=== PATIENT | female | born 1995 | race Caucasian/White ===

== ENCOUNTER → 2024-01-13 | Outpatient (CLI) | payer MEDICAID, SELFPAY ==
--- NOTE | 2024-01-13 14:32 | XR_ITS ---
Examination: Right elbow 3 views Technique: Elbow AP, oblique, lateral 3 views Exam date and time: January 13, 2024 1526 hours INDICATIONS: Right elbow pain and decreased range of motion one month FINDINGS: Mild elbow osteoarthritis No elbow effusion No fracture or dislocation IMPRESSION: Mild elbow osteoarthritis.
== END | disposition home or self-care (01) ==
LOC: CDIM 14:16
PROVIDERS: PCP Internal Medicine; Referring Provider Nurse Practitioner Family; Visit Provider Nurse Practitioner Family
DX: M19.021 Primary osteoarthritis, right elbow (principal)
CPT/HCPCS: 73080

== ENCOUNTER 2024-05-23 18:58 | Emergency (ER) | payer MEDICAID, SELFPAY ==
[2024-05-23 18:59] VITALS: BMI 38.7
--- NOTE | 2024-05-23 19:10 | EKG_ITS ---
[facility] Test Date: 2024-05-23 Pat Name: JOSE NDIAYE Department: Room: - Gender: Female Psychologist: : 1995 Requested By: Jamie Pruitt Order Number: [id number] Reading MD: Jamie Pruitt Measurements Intervals [place] Rate: 81 P: 32 TX: 150 QRS: -13 QRSD: 90 T: 14 QT: 371 QTc: 431 Interpretive Statements SINUS RHYTHM MINIMAL VOLTAGE CRITERIA FOR LVH, CONSIDER NORMAL VARIANT [MEETS CRITERIA IN ONE OF: R(aVL), S(V1), R(V5), R(V5/V6)+S(V1)] No previous ECG available for comparison /store/S0/[id number]/ecg/[id number].pdf
[2024-05-23 20:04] VITALS: BP 135/88; PULSE 70; RESP 20; TEMP 36.6; O2SAT 98
--- NOTE | 2024-05-23 20:21 | XR_ITS ---
Examination: Transvaginal ultrasound of the pelvis, complete Technique: Transvaginal sonographic images pelvis performed using brock scale imaging Exam date and time: May 23, 2024, 2111 hours INDICATIONS: Pelvic pain and vaginal bleeding beginning 18 days ago FINDINGS: Uterus 6.1 cm endometrial stripe 11 mm No uterine mass or intrauterine gestation Right ovary 3.1 cm arterial flow Left ovary 3.0 cm arterial flow Mild fluid in the cul-de-sac IMPRESSION: No uterine mass or intrauterine gestation Negative for ovarian torsion.
--- NOTE | 2024-05-23 20:22 | PD.EDRME ---
Rapid Medical Screening Exam [facility] Arrival date/time: 05/23/24 18:58 28F with no significant PMH presents to ED with 3 weeks of intermittent weakness, N/V, vaginal spotting, and pelvic/back pain. Patient denies dysuria. Patient came in primarily because today she stood up after using the restroom and had a syncopal episode where she fell on to her bed. Patient's menstrual cycles are usually regular. Chief Complaint: Dizziness Vital signs: Vital Signs Temperature 97.9 F 05/23/24 20:04 Pulse Rate 70 05/23/24 20:04 Respiratory Rate 20 05/23/24 20:04 Blood Pressure 135/88 H 05/23/24 20:04 Pulse Oximetry (%) 98 05/23/24 20:04 Oxygen Delivery Method Room Air 05/23/24 20:04
[2024-05-23 20:58] LABS: Basophils % (Auto) 0 % (0-2.5); Eosinophils # (Auto) 0.1 Thou/mm3 (0.0-0.5); Eosinophils % (Auto) 1 % (0-10); Hematocrit 42.6 % (36.0-46.0); Hemoglobin 14.8 g/dL (12.0-16.0); Immature Granulocytes % (Auto) 0 % (0-0); Immature Granulocytes Auto 0.03 Thou/mm3 (0.00-0.00); Lymphocytes % (Auto) 32 % (10-50); Mean Corpuscular HGB Conc 34.7 g/dl (31.0-37.0); Mean Corpuscular Volume 92 fL (80-100); Monocytes # (Auto) 0.8 Thou/mm3 (0.0-0.8); Monocytes % (Auto) 9 % (0-12); Neutrophils # (Auto) 5.4 Thou/mm3 (1.8-7.7); Neutrophils % (Auto) 58 % (37-80); Nucleated Red Blood Cell % 0 /100 WBC (0); Platelet Count 233 Thou/mm3 (140-440); RDW Standard Deviation 41.1 fL (36.4-46.3); Red Blood Count 4.62 Miln/mm3 (4.00-5.20); White Blood Count 9.3 Thou/mm3 (3.6-11.0)
[2024-05-23 21:04] LABS: HCG Qualitative,Urine Negative
[2024-05-23 21:13] LABS: Alanine Aminotransferase 82 U/L (10-49); Albumin, Serum 4.4 gm/dL (3.5-5.0); Albumin/Globulin Ratio 1.4 (1.2-2.2); Alkaline Phosphatase 86 U/L (46-116); Anion Gap 10 (7-16); Aspartate Amino Transferase 73 U/L (0-34); BUN/Creatinine Ratio 20 Ratio (12-20); Bilirubin,Total 0.6 mg/dL (0.3-1.2); Blood Urea Nitrogen 12 mg/dL (9-23); Calcium 9.8 mg/dL (8.3-10.6); Calcium (Corrected) 9.8 mg/dL (8.5-10.1); Carbon Dioxide 26.5 mMol/L (20.0-31.0); Chloride 106 mMol/L (98-107); Creatinine (Component) 0.6 mg/dL (0.6-1.3); Estimated Creatinine Clearance 202.1 mL/min (>60); Globulin 3.2 gm/dL (2.3-3.5); Glucose 97 mg/dL (74-106); Osmolality,Calculated 282 (275-295); Potassium 4.1 mMol/L (3.4-5.1); Sodium 142 mMol/L (136-145); Total Protein 7.6 gm/dL (5.7-8.2); eGFR > 60 See Note
[2024-05-23 21:32] VITALS: BP 145/78; PULSE 65; RESP 20; TEMP 36.8; O2SAT 98
[2024-05-23 21:35] LABS: Amphetamine/Methamp Scrn,U Negative (Negative); Barbiturate Screen,Urine Negative (Negative); Benzodiazepines Screen,Urine Negative (Negative); Benzoylecgonine Screen, Ur Negative (Negative); Fentanyl Screen,Urine Negative (Negative); Opiate Screen,Urine Negative (Negative); THC Screen,Urine Negative (Negative)
--- NOTE | 2024-05-23 21:36 | PC.NURSE ---
PT CAME IN TO ED AROUND 194 PT HAD SYNCOPE EPISODE WITH LOC DID NOT HIT HEAD WAS NOT WITNESSED. PT STATES SHE HAS HAD A MENSES FOR 18 DAYS NO HEAVY FLOW ON AND OF SPOTTING. PT STATES SHE HAS ABD PAIN STARTED 1 WEEK AGO
--- NOTE | 2024-05-23 21:45 | PD.EDADULT ---
ED General RME/HPI General Chief complaint: Dizziness Stated complaint: MENSTRATION 18 DAYS, DIZZY, FELL, NAUSEA, I[place] Time Seen by Provider: 05/23/24 21:38 Arrival date/time: 05/23/24 18:58 CC: Patient has 2 complaints the first 1 is syncope today at approximately 1 in the afternoon while walking from the bathroom to the bed the patient got lightheaded dizzy and passed out. Patient states she has had intermittent dizziness for the past 2 to 3 weeks. She has not informed her PCP Dr. Kuhn. Second is irregular menses and is currently had vaginal bleeding. Patient denies vaginal discharge heavy by bleeding at this time. Currently the patient is mildly nauseated. Has no other complaints. RME / HPI RME / HPI narrative: 05/23/24 18:58 28F with no significant PMH presents to ED with 3 weeks of intermittent weakness, N/V, vaginal spotting, and pelvic/back pain. Patient denies dysuria. Patient came in primarily because today she stood up after using the restroom and had a syncopal episode where she fell on to her bed. Patient's menstrual cycles are usually regular. Related Data Previous Rx's ?Medication ?Instructions ?Recorded dicyclomine 20 mg tablet 20 mg PO Q8HR PRN Abdominal cramps 10/07/18 #10 tabs ondansetron 4 mg disintegrating 4 mg PO Q8H PRN nausea and 10/07/18 tablet vomiting #5 tabs sucralfate 1 gram tablet (Carafate) 1 gm PO Q6H #14 tabs 10/07/18 acetaminophen 325 mg capsule 650 mg (2 x 325 mg) PO Q6H PRN 04/13/19 fever or pain #30 caps cyclobenzaprine 10 mg tablet 10 mg PO TID #30 tabs 04/13/19 etodolac 400 mg tablet 400 mg PO BID PRN pain #30 tabs 08/06/19 Allergies Allergy/AdvReac Type Severity Reaction Status Date / Time codeine Allergy Unknown ANAPHALTIC Verified 05/23/24 19:02 REACTION Review of Systems Review of Systems Narrative Review of Systems: GEN: No fever, no chills, no weight loss EYES: No discharge, no visual changes, no pain HEENT: No ear pain, no congestion, no sore throat PULM: No shortness of breath, no cough, no congestion CV: No chest pain, no dyspnea on exertion, no palpitations GI: + nausea, no vomiting, no diarrhea, no pain, no constipation : No frequency, no urgency, no dysuria MUSC/SKEL: No joint pain, no back pain SKIN: No rash PSYCH: No hallucinations, no depression HEME/LYMPH: No easy bleeding or bruising tendencies NEURO: No weakness, no headache Past Medical History Past Medical History CARDIAC: Negative Cardiac Disorders or Congestive Heart Failure RESPIRATORY: Negative Chronic Obstructive Pulmonary Disease (COPD) or Asthma GASTROINTESTINAL: Positive Gastrointestinal Disorders, Ulcer and Gastroesophageal Reflux Disease GENITOURINARY: Negative Genitourinary Disorders or Renal Disease REPRODUCTIVE: Positive Endometriosis MUSCULOSKELETAL: Positive Fractures ENDOCRINE: Positive Endocrine Disorders and Hypothyroidism; Negative Diabetes Mellitus Type 1 or Diabetes Mellitus Type 2 HEMATOLOGIC: Negative Sickle Cell Disease PSYCHO/SOCIAL: Positive Depression and Self-Mutilation Social History SMOKING STATUS: Current every day smoker SUBSTANCE USE: does not use ED Exam Narrative Physical exam: [General: Obese not in any acute distress Head normocephalic HEENT: Within acceptable limits Neck is supple nontender Chest equal chest rise nontender to palpation Respiratory: Clear to auscultation no wheezes crackles or rubs CV: Rate rhythm is regular no murmurs rubs or clicks Abdomen is distended secondary to body habitus soft nontender no masses positive bowel sounds all 4 quadrants Back: No CVA tenderness no spinous process tenderness from cervical spine thoracic and lumbar spine Skin: Intact no petechiae rash induration ulceration or crepitus Extremities: Moving all extremity against resistance cap refill less than 2 seconds neurosensory intact Neuro: Awake alert oriented x3 Glascow coma 15 no focal deficits] Course Quality Measures none Orders Category Date Time Status EKG (ED ONLY) *Do not use* NOW Care 05/23/24 19:10 Completed EKG (ED Only) Stat Exams 05/23/24 19:10 Draft US transvaginal Stat Exams 05/23/24 20:21 Completed CBC Stat Lab 05/23/24 20:36 Completed CMP [Comprehensive Metabolic Panel] Stat Lab 05/23/24 20:36 Completed Drug Screen,Urine Stat Lab 05/23/24 20:31 Completed HCG Qualitative,Urine Stat Lab 05/23/24 20:31 Completed Ondansetron Odt [Zofran Odt] Med 05/23/24 21:43 Discontinued 4 mg PO X1 ONE Vital Signs Vital signs: Vital Signs Temperature 97.9 F 05/23/24 20:04 Pulse Rate 70 05/23/24 20:04 Respiratory Rate 20 05/23/24 20:04 Blood Pressure 135/88 H 05/23/24 20:04 Pulse Oximetry (%) 98 05/23/24 20:04 Oxygen Delivery Method Room Air 05/23/24 20:04 MDM Patient data External records reviewed:: [facility] previous records Clinical information provided by:: patient Social determinants that could affect healthcare access:: none Patient has the following chronic illnesses:: Obesity How is presenting disease/condition affected by chronic disease/condition?: uneffected by Evaluation data The following diagnostics were reviewed and interpreted by me:: lab results and radiology exam(s) Lab and/or radiology exams considered but not ordered:: CBC shows no acute leukocytosis anemia thrombocytopenia CMP shows no acute electrolyte imbalances renal impairment transaminitis or T. bili elevation. Urine is negative UDS is negative. EKG performed at 2009 shows a ventricular rate of 81 WI interval 150 QRS of 90 QTc of 408 there is normal sinus rhythm. Transvaginal ultrasound is negative for any acute finding Interpretation Summary: Patient has 2 issues with syncope feels may be vasovagal but am not sure. The patient has been running mildly bradycardic this is later today. Patient certainly needs to follow-up with a primary care provider for further evaluation. Dysfunctional uterine bleeding patient is to follow-up with an [employer] if there is worsening of symptoms she is to return the emergency room immediately for further evaluation. Medications Medications considered but not ordered:: None Medication administrations:: Medication Administration History Discontinued Medications Ondansetron HCl (Ondansetron Odt 4 Mg Tabrap) 4 mg PO X1 ONE; Protocol Stop: 05/23/24 21:44 Last Admin: 05/23/24 21:58 Dose: 4 mg Documented By: BD None Consultations Consultation(s) initiated? (list below): No Diagnosis Differential Diagnosis ED Complaint MDM: Syncope vaginal bleeding ovarian cyst Most likely diagnosis given after review of the tests above:: Syncope vaginal bleeding Admission Indicated Admission indicated?: not indicated Explain why admission is indicated or not indicated:: Stable for discharge Admission Request Was there a request for admission?: No Disposition Plan Disposition Plan: Discharge Discharge Attestation Discharge Attestation: The patient and all family members were given an opportunity to ask questions and understood the discharge instructions. Discharge instructions specifically effects, indications for sooner follow up or return to the emergency department, and the expected course of current diagnosis. Patient condition: Stable Medical Decision Making Differential Diagnosis Differential Diagnosis: Syncope vaginal bleeding ovarian cyst Lab Data 05/23/24 20:36 05/23/24 20:36 Labs: Lab Results 05/23/24 05/23/24 Range/Units 20:31 20:36 WBC 9.3 (3.6-11.0) Thou/mm3 RBC 4.62 (4.00-5.20) Miln/mm3 Hgb 14.8 (12.0-16.0) g/dL Hct 42.6 (36.0-46.0) % MCV 92 (80-100) fL MCH 32.0 (25.0-35.0) pg MCHC 34.7 (31.0-37.0) g/dl RDW Std Deviation 41.1 (36.4-46.3) fL Plt Count 233 (140-440) Thou/mm3 Neut % (Auto) 58 (37-80) % Lymph % (Auto) 32 (10-50) % Coles % (Auto) 9 (0-12) % Eos % (Auto) 1 (0-10) % Baso % (Auto) 0 (0-2.5) % Neut # (Auto) 5.4 (1.8-7.7) Thou/mm3 Lymph # (Auto) 3.0 (1.0-4.8) Thou/mm3 Coles # (Auto) 0.8 (0.0-0.8) Thou/mm3 Eos # (Auto) 0.1 (0.0-0.5) Thou/mm3 Baso # (Auto) 0.0 (0.0-0.2) Thou/mm3 Immature Gran # (Auto) 0.03 H (0.00-0.00) Thou/mm3 Absolute Nucleated RBC 0.00 (0.00-0.00) Thou/mm3 Immature Gran % 0 (0-0) % Nucleated RBC % 0 (0) /100 WBC Sodium 142 (136-145) mMol/L Potassium 4.1 (3.4-5.1) mMol/L Chloride 106 (98-107) mMol/L Carbon Dioxide 26.5 (20.0-31.0) mMol/L Anion Gap 10 (7-16) BUN 12 (9-23) mg/dL Creatinine 0.6 (0.6-1.3) mg/dL Estim Creat Clear Calc 202.1 (>60) mL/min eGFR > 60 (60 - ) See Note BUN/Creatinine Ratio 20 (12-20) Ratio Glucose 97 (74-106) mg/dL Calculated Osmolality 282 (275-295) Calcium 9.8 (8.3-10.6) mg/dL Corrected Calcium 9.8 (8.5-10.1) mg/dL Total Bilirubin 0.6 (0.3-1.2) mg/dL AST 73 H (0-34) U/L ALT 82 H (10-49) U/L Alkaline Phosphatase 86 (46-116) U/L Total Protein 7.6 (5.7-8.2) gm/dL Albumin 4.4 (3.5-5.0) gm/dL Globulin 3.2 (2.3-3.5) gm/dL Albumin/Globulin Ratio 1.4 (1.2-2.2) Urine HCG, Qual Negative Urine Opiates Screen Negative (Negative) Urine Fentanyl Screen Negative (Negative) Ur Barbiturates Screen Negative (Negative) U Amphetamin/Meth Scrn Negative (Negative) U Benzodiazepines Scrn Negative (Negative) U Cocaine Metab Screen Negative (Negative) U Marijuana (THC) Screen Negative (Negative) Discharge Plan Plan Patient Disposition: HOME (Self Care) Patient condition on transfer: Stable Prescriptions/Referrals Prescriptions/Med Rec: No Action cyclobenzaprine 10 mg tablet 10 mg PO TID Qty: 30 0RF acetaminophen 325 mg capsule 650 mg PO Q6H PRN (Reason: fever or pain) Qty: 30 0RF etodolac 400 mg tablet 400 mg PO BID PRN (Reason: pain) Qty: 30 0RF sucralfate [Carafate] 1 gram tablet 1 gm PO Q6H Qty: 14 0RF dicyclomine 20 mg tablet 20 mg PO Q8HR PRN (Reason: Abdominal cramps) Qty: 10 0RF ondansetron 4 mg tablet,disintegrating 4 mg PO Q8H PRN (Reason: nausea and vomiting) Qty: 5 0RF Referrals: Bailey,Noah S, MD [Primary Care Provider] - In 1 week Jessica (Referring),MD Ugo [Referring Provider] - In 1 week Problem List Clinical Impression: Syncope, Vaginal bleeding Patient/Caregiver Discharge Instructions Education Materials: ED Fainting, Uncertain Cause Additional Instructions: Follow-up with the [employer] [facility] listed above or will be of your choice for vaginal bleeding if it is recurrent. Follow-up with your primary care doctor syncopal. If there is worsening or repeat of the symptoms return the emergency room for reevaluation. Print Language: Serbian Stand Alone Forms: Gogo Award Info., Work/School Release, Patient Portal Info Letter PA/EVELIA Supervising Physician PA/EDITOR BOOK Supervising Physician: aMrk Morrison ENP
[2024-05-23] MEDS: ONDANSETRON ODT 4 MG TABRAP PO (21:58)
[2024-05-23 22:44] VITALS: BP 145/78; PULSE 58; RESP 14; TEMP 36.8; O2SAT 98
== END 2024-05-23 22:47 | disposition home or self-care (01) ==
PROVIDERS: Physician Assistant; Emergency Provider Emergency Medicine; PCP Obstetrics & Gynecology
DX: R55 Syncope and collapse (principal); N93.9 Abnormal uterine and vaginal bleeding, unspecified
CPT/HCPCS: 36415; 76830; 80053; 80307; 81025; 85025; 93005; 99284; Q0162

== ENCOUNTER 2024-09-06 18:14 | Emergency (ER) | payer MEDICAID, SELFPAY ==
[2024-09-06 18:47] VITALS: BP 134/84; PULSE 91; RESP 20; TEMP 37; O2SAT 98; BMI 37.3
--- NOTE | 2024-09-06 18:57 | XR_ITS ---
Examination: Transvaginal ultrasound of the pelvis, complete Technique: Transvaginal sonographic images pelvis performed using brock scale imaging Exam date and time: September 06, 20242002 hours INDICATIONS: Pelvic pain beginning 2 days ago FINDINGS: Uterus 6.2 cm endometrial stripe 1.0 cm No uterine mass or intrauterine gestation Right ovary 2.9 cm arterial flow. Left ovary 2.4 cm arterial flow Small cystic areas in the endometrium IMPRESSION: No uterine mass or intrauterine gestation No adnexal mass.
--- NOTE | 2024-09-06 18:57 | XR_ITS ---
Examination: CT abdomen with intravenous contrast CT pelvis with intravenous contrast 2-D coronal reconstructions 2-D sagittal reconstructions Date and time of exam:Abdominal pain nausea vomiting beginning 3 days ago. CTDI: vol (mGy) 23.5 DLP: (mGycm) 1527 Technique: Multiple axial sections of the abdomen and pelvis have been obtained. 64 slice high-resolution scanner used. 3 mm axial sections have been obtained, post intravenous injection 60 cc Isovue 370 2-D sagittal, coronal reconstructions obtained. Low dose protocols were performed. One or more of the following dose reduction techniques were used; automated exposure control, adjustment of the mA and/or KV according to patient size, use of iterative reconstruction technique. Findings: Fatty infiltration throughout the liver, hepatomegaly 22 cm Contracted gallbladder Fatty infiltration throughout the pancreas Aorta normal size No renal or ureteral calculi, hydronephrosis Aorta normal size Tiny fat-containing umbilical hernia Normal appendix No bowel obstruction No diverticulitis. No pelvic mass Urinary bladder intact Mild disc narrowing L5-S1 IMPRESSION: Fatty infiltration throughout the liver Fatty infiltration throughout the pancreas No renal or ureteral calculi, no hydronephrosis Normal appendix No bowel obstruction diverticulitis or free air
[2024-09-06 19:49] LABS: Collection Type, Urine Clean Catch; WBC,Urine 0 /hpf (0-5)
[2024-09-06 20:00] LABS: Bacteria,Urine Rare; Bilirubin,Urine Negative (Negative); Blood,Urine 3+ (Negative); Clarity,Urine Clear (Clear/Hazy); Color,Urine Yellow (Lt Yel-Yel); Culture Indicated,Urine Not Indicated; Glucose, Urine Negative (Negative); Ketones,Urine Negative (Negative); Leukocyte Esterase,Urine Negative (Negative); Nitrite,Urine Negative (Negative); PH,Urine 6.0 (5.0-7.0); Protein,Urine Negative (Neg - Trace); RBC,Urine 5 /hpf (0-3); Specific Gravity,Urine 1.024 (1.001-1.035); Squamous Epithelial Cell,Urine 4 /hpf (0-5); Urobilinogen,Urine Negative mg/dL (0.0-1.0)
[2024-09-06 20:01] LABS: HCG Qualitative,Urine Negative
[2024-09-06 20:12] LABS: Amphetamine/Methamp Scrn,U Negative (Negative); Barbiturate Screen,Urine Negative (Negative); Benzodiazepines Screen,Urine Negative (Negative); Benzoylecgonine Screen, Ur Negative (Negative); Fentanyl Screen,Urine Negative (Negative); Opiate Screen,Urine Negative (Negative); THC Screen,Urine Negative (Negative)
--- NOTE | 2024-09-06 20:35 | EDNOTE_ITS ---
ED Abdominal Pain RME/HPI General Chief Complaint: Abdominal Pain Stated complaint: FELT POP IN STOMACH ; HURTS TO BREATH / MOVE Time seen by provider: 09/06/24 18:57 Arrival date/time: 09/06/24 18:14 28F with no significant PMH presents to ED with lower ab/pelvic pain and N/V after she bent over and heard a pop. Patient denies dysuria and diarrhea. Limitations: no limitations Related Data Previous Rx's ?Medication ?Instructions ?Recorded dicyclomine 20 mg tablet 20 mg PO Q8HR PRN Abdominal cramps 10/07/18 #10 tabs ondansetron 4 mg disintegrating 4 mg PO Q8H PRN nausea and 10/07/18 tablet vomiting #5 tabs sucralfate 1 gram tablet (Carafate) 1 gm PO Q6H #14 ta bs 10/07/18 acetaminophen 325 mg capsule 650 mg (2 x 325 mg) PO Q6 H PRN 04/13/19 fever or pain #30 caps cyclobenzaprine 10 mg tablet 10 mg PO TID #30 tabs etodolac 400 mg tablet 400 mg PO BID PRN pain #30 t abs 08/06/19 Allergies Allergy/AdvReac Type Severity Reaction Status Date / Time codeine Allergy Unknown ANAPHALTIC Verified 09/06/24 18:20 REACTION Review of Systems Review of Systems Systems Reviewed: All systems reviewed, normal except as documented Constitutional Constitutional: Reports system reviewed and no additional complaints, except as documented, Denies fever(s) and Denies headache(s) ENT Ears, Nose, Mouth, and Throat: Denies disequilibrium and Denies headache(s) Cardiovascular Cardiovascular: Reports system reviewed and no additional complaints, except as documented, Denies chest pain and Denies dyspnea Respiratory Respiratory: Reports system reviewed and no additional complaints, except as documented, Denies cough and Denies dyspnea Gastrointestinal Gastrointestinal: Reports system reviewed and no additional complaints, except as documented, Reports as per HPI, Reports abdominal pain, Reports nausea and Reports vomiting Neurologic Neurologic: Reports system reviewed and no additional complaints, except as documented, Denies confusion, Denies disequilibrium and Denies headache(s) Psychiatric Psychiatric: Denies confusion Past Medical History Past Medical History CARDIAC: Positive Cardiac Disorders (Heart Murmur); Negative Congestive Heart Failure RESPIRATORY: Negative Chronic Obstructive Pulmonary Disease (COPD) or Asthma GASTROINTESTINAL: Positive Gastrointestinal Disorders, Ulcer and Gastroesophageal Reflux Disease GENITOURINARY: Negative Genitourinary Disorders or Renal Disease REPRODUCTIVE: Positive Endometriosis MUSCULOSKELETAL: Positive Fractures ENDOCRINE: Positive Endocrine Disorders and Hypothyroidism; Negative Diabetes Mellitus Type 1 or Diabetes Mellitus Type 2 HEMATOLOGIC: Negative Sickle Cell Disease PSYCHO/SOCIAL: Positive Depression and Self-Mutilation Social History SMOKING STATUS: Current every day smoker SUBSTANCE USE: does not use ED Exam General Limitations: Present no limitations General appearance: Present alert and in no apparent distress Head Head exam: Present atraumatic Eye Eye exam: Present normal appearance, PERRL and EOMI ENT ENT exam: Present normal exam, normal oropharynx and mucous membranes moist Neck Neck exam: Present normal inspection, full ROM and trachea midline Chest Chest inspection: Present normal inspection and symmetric chest wall rise Respiratory Respiratory exam: Present normal lung sounds bilaterally Cardiovascular Cardiovascular exam: Present regular rate, normal rhythm and normal heart sounds Abdominal Exam Abdominal exam: Present soft and normal bowel sounds Abdominal tenderness: Present RLQ, LLQ and mild Extremities Exam Extremities exam: Present normal inspection and full ROM Back Exam Back exam: Present normal inspection and full ROM Neurological Exam Neurological exam: Present alert, oriented X3 and CN II-XII intact Psychiatric Psychiatric exam: Present normal affect and normal mood Skin Skin exam: Present warm, dry, intact and normal color Course Quality Measures none Orders Category Date Time Status CT Screening NOW Care 09/06/24 18:58 Active Insert IV QSHIFT Care 09/06/24 18:[address] abdomen pelvis w con Stat Exams 09/06/24 18:57 Completed US transvaginal Stat Exams 09/06/24 18:57 Completed CBC Stat Lab 09/06/24 21:00 Completed CMP [Comprehensive Metabolic Panel] Stat Lab 09/06/24 21:00 Completed Drug Screen,Urine Stat Lab 09/06/24 19:33 Completed HCG Qualitative,Urine Stat Lab 09/06/24 19:33 Completed Lipase Stat Lab 09/06/24 21:00 Completed Urinalysis, C/S if Indicated Stat Lab 09/06/24 19:33 Completed Ketorolac Inj [Toradol Inj] Med 09/06/24 21:26 Discontinued 30 mg IVP X1 ONE Ondansetron Inj [Zofran Inj] Med 09/06/24 21:26 Discontinued 4 mg IV X1 ONE Vital Signs Vital signs: Vital Signs Temperature 98.6 F 09/06/24 18:47 Pulse Rate 91 09/06/24 18:47 Respiratory Rate 20 09/06/24 18:47 Blood Pressure 134/84 H 09/06/24 18:47 Pulse Oximetry (%) 98 09/06/24 18:47 Oxygen Delivery Method Room Air 09/06/24 18:47 O2 at 98% on RA and WNLs Abdominal Pain MDM MDM Narrative MDM Narrative:: 28F with no significant PMH presents to ED with lower ab/pelvic pain and N/V after she bent over and heard a pop. Patient denies dysuria and diarrhea. Physical exam reveals mild lower ab tenderness. Patient is afebrile, calm, and alert. CT unremarkable. US small cysts in endometrium. No leukocytosis or gross anemia. CMP unremarkable. Drug/HCG screen neg. Likely MSK-related pain. Meds and mitochondrial disorders counselor given. Patient data External records reviewed:: [facility] previous records Clinical information provided by:: patient Social determinants that could affect healthcare access:: none Patient has the following chronic illnesses:: none How is presenting disease/condition affected by chronic disease/condition?: no chronic disease Evaluation data The following diagnostics were reviewed and interpreted by me:: lab results and radiology exam(s) Lab and/or radiology exams considered but not ordered:: ordered Interpretation Summary: above Medications / Prescriptions Medications or Prescriptions considered but not ordered:: ordered Medication administrations:: Medication Administration History Discontinued Medications Ketorolac Tromethamine (Ketorolac Inj 30 Mg/Ml Vial) 30 mg IVP X1 ONE Stop: 09/06/24 21:27 Last Admin: 09/06/24 21:53 Dose: 30 mg Documented By: BREE Ondansetron HCl (Ondansetron Inj 2 Mg/Ml Inj 2 Ml) 4 mg IV X1 ONE; Protocol Stop: 09/06/24 21:27 Last Admin: 09/06/24 21:54 Dose: 4 mg Documented By: FF above Consultations Consultation(s) initiated? (list below): No Diagnosis Differential diagnosis abdominal pain: abdominal pain, acute appendicitis, calculus of kidney, constipation, diverticulitis, endometriosis, pancreatitis, small bowel obstruction and other (muscle strain, hernia) Most likely diagnosis given after review of the tests above:: muscle strain Admission Indicated Admission indicated?: not indicated Admission Request Was there a request for admission?: No Disposition Plan Disposition Plan: Discharge Discharge Attestation Discharge Attestation: The patient and all family members were given an opportunity to ask questions and understood the discharge instructions. Discharge instructions specifically effects, indications for sooner follow up or return to the emergency department, and the expected course of current diagnosis. Patient condition: Stable Discharge Plan Plan Patient Disposition: HOME (Self Care) Discharge Disposition comment: Stable Prescriptions/Referrals Prescriptions/Med Rec: No Action cyclobenzaprine 10 mg tablet 10 mg PO TID Qty: 30 0RF acetaminophen 325 mg capsule 650 mg PO Q6H PRN (Reason: fever or pain) Qty: 30 0RF etodolac 400 mg tablet 400 mg PO BID PRN (Reason: pain) Qty: 30 0RF sucralfate [Carafate] 1 gram tablet 1 gm PO Q6H Qty: 14 0RF dicyclomine 20 mg tablet 20 mg PO Q8HR PRN (Reason: Abdominal cramps) Qty: 10 0RF ondansetron 4 mg tablet,disintegrating 4 mg PO Q8H PRN (Reason: nausea and vomiting) Qty: 5 0RF Referrals: Quentin Bailey MD [Primary Care Provider] - In 1 week Problem List Clinical Impression: Muscle strain Patient/Caregiver Discharge Instructions Education Materials: ED Muscle Strain, Abdomen Additional Instructions: Please follow-up with PCP within 24-48 hours and return immediately if symptoms worsen. If problem persists, recommend outpatient PT and/or MRI follow-up. In the meantime, rest, use ice/heat, and/or compression. Print Language: Gibraltarian Stand Alone Forms: Work/School Release, Patient Portal Info Letter MIRELLA/EVELIA Supervising Physician GENOVEVA Supervising Physician: Dr. Mata
[2024-09-06 21:10] LABS: Basophils # (Auto) 0.0 Thou/mm3 (0.0-0.2); Basophils % (Auto) 0 % (0-2.5); Eosinophils # (Auto) 0.2 Thou/mm3 (0.0-0.5); Eosinophils % (Auto) 2 % (0-10); Hematocrit 42.3 % (36.0-46.0); Hemoglobin 15.2 g/dL (12.0-16.0); Immature Granulocytes Auto 0.02 Thou/mm3 (0.00-0.00); Lymphocytes # (Auto) 3.3 Thou/mm3 (1.0-4.8); Lymphocytes % (Auto) 35 % (10-50); Mean Corpuscular HGB Conc 35.9 g/dl (31.0-37.0); Mean Corpuscular Hemoglobin 32.8 pg (25.0-35.0); Mean Corpuscular Volume 91 fL (80-100); Monocytes # (Auto) 0.7 Thou/mm3 (0.0-0.8); Monocytes % (Auto) 7 % (0-12); Neutrophils # (Auto) 5.2 Thou/mm3 (1.8-7.7); Neutrophils % (Auto) 56 % (37-80); Nucleated Red Blood Cell # 0.00 Thou/mm3 (0.00-0.00); Nucleated Red Blood Cell % 0 /100 WBC (0); Platelet Count 250 Thou/mm3 (140-440); RDW Standard Deviation 41.2 fL (36.4-46.3); Red Blood Count 4.64 Miln/mm3 (4.00-5.20); White Blood Count 9.4 Thou/mm3 (3.6-11.0)
[2024-09-06 21:26] LABS: Alanine Aminotransferase 89 U/L (10-49); Albumin, Serum 4.5 gm/dL (3.5-5.0); Albumin/Globulin Ratio 1.6 (1.2-2.2); Alkaline Phosphatase 94 U/L (46-116); Anion Gap 7 (7-16); Aspartate Amino Transferase 83 U/L (0-34); BUN/Creatinine Ratio 13 Ratio (12-20); Bilirubin,Total 0.6 mg/dL (0.3-1.2); Blood Urea Nitrogen 10 mg/dL (9-23); Calcium 10.0 mg/dL (8.3-10.6); Calcium (Corrected) 10.0 mg/dL (8.5-10.1); Carbon Dioxide 27.8 mMol/L (20.0-31.0); Chloride 107 mMol/L (98-107); Creatinine (Component) 0.8 mg/dL (0.6-1.3); Estimated Creatinine Clearance 148.5 mL/min (>60); Globulin 2.9 gm/dL (2.3-3.5); Glucose 176 mg/dL (74-106); Osmolality,Calculated 286 (275-295); Potassium 4.2 mMol/L (3.4-5.1); Sodium 142 mMol/L (136-145); Total Protein 7.4 gm/dL (5.7-8.2); eGFR > 60 See Note
[2024-09-06 21:27] LABS: Lipase 27 U/L (12-53)
[2024-09-06] MEDS: KETOROLAC INJ 30 MG/ML VIAL IVP (21:53)
[2024-09-06] MEDS: ONDANSETRON INJ 2 MG/ML INJ 2 ML 4 MG IV (21:54)
--- NOTE | 2024-09-06 22:05 | PC.NURSE ---
said okay to give ice chips.
[2024-09-06 22:40] VITALS: RESP 18
== END 2024-09-06 22:41 | disposition home or self-care (01) ==
PROVIDERS: Physician Assistant; Emergency Provider Emergency Medicine; PCP Internal Medicine
DX: S39.011A Strain of muscle, fascia and tendon of abdomen, initial encounter (principal); X58.XXXA Exposure to other specified factors, initial encounter; K76.0 Fatty (change of) liver, not elsewhere classified
CPT/HCPCS: 36415; 74177; 76830; 80053; 80307; 81001; 81025; 83690; 85025; 96374; 96375; 99284; A4649; J1885; J2405; Q9967

== ENCOUNTER → 2025-01-03 | Outpatient (CLI) | payer MEDICAID, SELFPAY ==
--- NOTE | 2025-01-03 15:08 | XR_ITS ---
Examination: Left elbow 3 views Technique: Elbow AP, oblique, lateral 3 views Exam date and time: January 03, 2025, 1547 hours INDICATIONS: Elbow pain months. FINDINGS: No elbow fracture or dislocation No arthritic change No elbow effusion IMPRESSION: Negative for osseous abnormality.
== END | disposition home or self-care (01) ==
DX: M25.522 Pain in left elbow (principal)
CPT/HCPCS: 73080